=== PATIENT | male | born 2000 | race Hispanic/Latino ===

== ENCOUNTER 2024-08-21 07:26 | Day surgery (SDC) | payer OTHER ==
[~2024-08-21] VITALS: Ht 180.3 cm; Wt 92.9 kg
[2024-08-21] MEDS ORDERED: LR 1,000 ML IV SCH (08:35)
[2024-08-21] MEDS: ceFAZolin SOD 2 GM in IV 1 EA IV ONE (09:19)
[2024-08-21] MEDS ORDERED: ONDANSETRON 4MG 2ML VIAL As Ordered ONE (09:40)
[2024-08-21] MEDS ORDERED: propofoL 200 MG/20 ML VIAL As Ordered ONE (09:40)
[2024-08-21] MEDS ORDERED: KETOROLAC 60MG 2ML VIAL As Ordered ONE (09:40)
[2024-08-21] MEDS ORDERED: ROCURONIUM BROMIDE 50MG/5ML VIAL As Ordered ONE (09:40)
[2024-08-21] MEDS ORDERED: METOCLOPRAMIDE INJ 10MG/2ML VIAL As Ordered ONE (09:40)
[2024-08-21] MEDS ORDERED: SUGAMMADEX SODIUM 500 MG/5 ML VIAL (BRIDION) As Ordered ONE (09:40)
[2024-08-21] MEDS ORDERED: fentaNYL 250 MCG/5 ML INJECTION As Ordered ONE (09:40)
[2024-08-21] MEDS ORDERED: dexmedeTOMIDine (4MCG/ML)200MCG/50ML BTL (PRECEDEX) As Ordered ONE (09:40)
[2024-08-21] MEDS ORDERED: MIDAZOLAM INJ 2MG/2ML VIAL As Ordered ONE (09:40)
[2024-08-21] MEDS ORDERED: LIDOCAINE 2% 100MG/5ML SDV (FOR ANES.) As Ordered ONE (09:40)
[2024-08-21] MEDS ORDERED: ACETAMINOPHEN 1000MG/100ML IV BAG As Ordered ONE (09:40)
[2024-08-21] MEDS ORDERED: ONDANSETRON 4MG 2ML VIAL IV PRN (10:25)
[2024-08-21] MEDS ORDERED: fentaNYL 100 MCG/2 ML INJECTION IV PRN (10:25)
[2024-08-21] MEDS ORDERED: NORCO, ANEXSIA 5/325MG TABLET (HYDROcodone/ACETAMINOPHEN) PO PRN (10:55)
[2024-08-21] MEDS: oxyCODONE 5MG TAB PO PRN (11:00)
[2024-08-21 12:21] VITALS: BP 131/74; TEMP 97.3; O2SAT 100
== END 2024-08-21 12:22 | disposition home or self-care (01) ==
LOC: M SDC 07:26
PROVIDERS: ATTEND Surgery
DX: K40.90 Unilateral inguinal hernia, without obstruction or gangrene, not specified as recurrent (principal); F17.210 Nicotine dependence, cigarettes, uncomplicated
CPT/HCPCS: 49650; C1781; J0131; J0665; J0690; J1100; J1885; J2250; J2405; J2765; J3010; S2900

== ENCOUNTER → 2024-11-10 | Outpatient (CLI) | payer OTHER | LOC: M RAD 11:55 | PROVIDERS: ATTEND Surgery | DX: K40.90 Unilateral inguinal hernia, without obstruction or gangrene, not specified as recurrent (principal); R10.31 Right lower quadrant pain ==